=== PATIENT | male | born 1990 | race African-American/Black ===

== ENCOUNTER 2022-02-17 11:57 | Emergency (ER) | payer OTHER ==
[~2022-02-17] VITALS: Ht 185.4 cm; Wt 99.8 kg
[2022-02-17 12:00] VITALS: BP 116/77; TEMP 98
== END 2022-02-17 13:46 | disposition home or self-care (01) ==
LOC: ED 11:57
PROC: 0HQGXZZ Repair Left Hand Skin, External Approach (ICD-10-PCS; principal; 2022-02-17)
DX: S61.211A Laceration without foreign body of left index finger without damage to nail, initial encounter (principal); W26.8XXA Contact with other sharp object(s), not elsewhere classified, initial encounter; Y92.89 Other specified places as the place of occurrence of the external cause
CPT/HCPCS: 99282; J2001